=== PATIENT | female | born 1995 | race Caucasian/White ===

== ENCOUNTER 2017-10-13 10:46 | Day surgery (SDC) | payer OTHER ==
--- NOTE | 2017-10-13 07:16 | PDGENHP ---
History and Physical History and Physical: Assessment and Plan: 1. Dysmenorrhea Kat's history and exam findings are highly suggestive of endometriosis in the posterior cul-de-sac. We reviewed all conservative and surgical options. Because of the severity of the pain she wishes to proceed to to surgical intervention. This will be a robotic excision of endometriosis. I will perform her preoperative counseling over the phone. I also will call in Macrodantin as prophylaxis after intercourse. 2. Dyschezia 3. Dyspareunia, female Subjective: Patient ID: Kat Wiggins is a 22 y.o. female who presents to [facility] for endometriosis. LAURA Stephens is a 22-year-old 0 woman who lives in [place]. She has a very long history of dysmenorrhea ever since menarche. She is required several visits to the emergency department where she was prescribed [place]. Cycles are regular every month. She will bleed 7-8 days. 3-4 the days are heavier when she will have to change her pad 3 times per day. Her pain begins 1-2 days before her flow and will last until around day 3. She feels a severe pain lower in the abdomen which radiates down to her feet. It also radiates to her low back. She has deep dyschezia during her menses. She has occasional deeper dyspareunia. Additionally she has frequent urinary tract infections after intercourse. Pain is so severe she feels as though she is dying. It is slowly worsening over time. Works as a administrative services specialist. PastMedicalHistory Past Medical History: Diagnosis Date Gastrointestinal disorder Mental disorder OCD Urinary tract infection PastSurgicalHistory Past Surgical History: Procedure Laterality Date MOLE REMOVAL WISDOM TOOTH EXTRACTION CURRENT MEDICATIONS: Current Outpatient Prescriptions Medication Sig cyanocobalamin, vitamin B-12, (VITAMIN B-12 PO) ergocalciferol, vitamin D2, (VITAMIN D PO) MAGNESIUM PO omega-3 acid ethyl esters, fish oil, (LOVAZA) 1 gram capsule Take 2 g by mouth 2 times daily. No current facility-administered medications for this visit. ALLERGIES: Ibuprofen I have reviewed, verified and agree with the past medical, surgical, , family, social and ROS history as documented by the RN today. Objective: Vital Signs: Visit Vitals BP (!) 88/54 Pulse 73 Temp 37.4 C (99.4 F) (Temporal Artery) Resp 16 Ht 1.575 m (5' 2") Wt 50 kg (110 lb 3.2 oz) SpO2 99% BMI 20.16 kg/m Physical Exam Gen: This is an alert, well developed woman in no distress. Neuro: She moves all extremities. Psych: She is appropriate, oriented, with normal affect. Neck: No thyroid enlargement, adenopathy, or tenderness. Lungs: Clear to ascultation, no wheezes or rales. Heart: Regular rate and rhythm without obvious murmurs. Abdomen: Soft, non-tender, without guarding, rebound, or masses. Extremities: No edema or cyanosis. Pelvic: Normal external genitalia. Non-gaping introitus, vagina without discharge, adequately estrogenized, no significant prolapse. Cervix without lesions or discharge. Uterus normal sized, reduced mobility. Adnexa non-tender without enlargement. She is tender in the anterior cul-de-sac and exquisitely tender in the posterior cul-de-sac especially where the uterosacral ligaments insert onto the cervix. DATA: I have reviewed the pertinent medical records. PELVIC ULTRASOUND Indication: Pelvic pain. Findings: Uterus is anterior and measures 7.3 x 3.7 x 5.0 cm. The endometrium measures 13 mm. No uterine abnormalities are seen. The right ovary measures 3.2 x 2.2 cm. The left ovary measures 2.8 x 1.9 cm. There is no evidence of adhesive disease of either adnexa nor the cervix. Impression: Normal pelvic ultrasound TIME/COMMUNICATION: I personally spent a total of 50 minutes. Of that 35 minutes was counseling/ coordination of patient's care. See my note above for details. Leo Ruiz MD Board Certified Female Pelvic Medicine and Reconstructive Surgery Director of Minimally Invasive Gynecologic Surgery, [facility] Surgeon in Minimally Invasive Gynecologic Surgery [facility] Surgeon in Robotic Surgery
[2017-10-13] MEDS ORDERED: MIDAZOLAM 2 MG/2 ML VIAL IVP ONE (11:01)
--- NOTE | 2017-10-13 11:01 | PDANEPAE ---
ANE History of Present Illness here for robotic endometrial excision ANE Past Medical History - Cardiovascular History Hx Hypertension: No Hx Arrhythmias: No Hx Chest Pain: No Hx Coronary Artery / Peripheral Vascular Disease: No Hx CHF / Valvular Disease: No Hx Palpitations: No - Pulmonary History Hx COPD: No Hx Asthma/Reactive Airway Disease: No Hx Recent Upper Respiratory Infection: No Hx Oxygen in Use at Home: No Hx Sleep Apnea: No Sleep Apnea Screening Result - Last Documented: Negative Pulmonary History Comment: CHILDHOOD ASTHMA - Neurologic History Hx Cerebrovascular Accident: No Hx Seizures: No Hx Dementia: No - Endocrine History Hx Diabetes: No - Renal History Hx Renal Disorders: Yes Renal History Comment: FREQUENT UTI'S - Liver History Hx Hepatic Disorders: No - Neurological & Psychiatric Hx Hx Neurological and Psychiatric Disorders: No - Cancer History Hx Cancer: No - Congenital Disorder History Hx Congenital Disorders: No - GI History Hx Gastrointestinal Disorders: Yes Gastrointestinal History Comment: GASTRITIS 01/2017 STILL SOME RESIDUAL ISSUES - Other Health History Other Health History: RINGWORM UPPER ARM,BETWEEN LEGS,GROIN BEGAN 08/2017 IMPROVING WITH RX. WITH MENSES INCREASED DISCOMFORT - Chronic Pain History Chronic Pain: Yes (LOWER ABD) - Surgical History Prior Surgeries: WISDOM TEETH ANE Review of Systems Review of Systems: - Exercise capacity METS (RN): 4 METS ANE Patient History - Allergies Allergies/Adverse Reactions: ibuprofen Allergy (Verified 09/21/17 16:41) NAUSEA - Home Medications Home Medications: Herbals/Supplements -Info Only DAILY 09/21/17 [Last Taken 2 Weeks Ago ~09/29/17] Terbinafine DAILY 09/21/17 [Last Taken 3 Weeks Ago ~09/22/17] - Smoking Hx Smoking Status: Never smoked - Family Anes Hx Family Hx Anesthesia Complications: NEG ANE Labs/Vital Signs - Vital Signs Height: 157.48 cm Weight: 47.627 kg ANE Physical Exam - Airway Neck exam: FROM Mallampati Score: Class 1 - Pulmonary Pulmonary: no respiratory distress - Cardiovascular Cardiovascular: regular rate and rhythym - ASA Status ASA Status: I ANE Anesthesia Plan Anesthesia Plan: general endotracheal anesthesia
[2017-10-13] MEDS ORDERED: LR 1,000 ML IV ONE (11:21)
[2017-10-13] MEDS ORDERED: ONDANSETRON 4 MG/2 ML VIAL IVP PRN (11:22)
[2017-10-13] MEDS ORDERED: oxyCODONE IR 5 MG TAB PO PRN (11:22)
[2017-10-13] MEDS ORDERED: ALBUTEROL 3 ML DEYVIAL IH PRN (11:22)
[2017-10-13] MEDS ORDERED: ACETAMINOPHEN 500 MG TAB PO PRN (11:22)
[2017-10-13] MEDS ORDERED: DEXAMETHASONE 4 MG/ML VIAL IVP PRN (11:22)
[2017-10-13] MEDS ORDERED: HYDROCODONE/APAP 5/325 TAB PO PRN (11:22)
[2017-10-13] MEDS ORDERED: NALOXONE HCL 0.4 MG/ML INJ IVP PRN (11:22)
[2017-10-13] MEDS ORDERED: HYDROmorphONE/DILAUDID 1 MG/ML INJ IVP PRN (11:22)
--- NOTE | 2017-10-13 11:22 | PDHPUP ---
History & Physical Update H&P update statement: This history and physical update is based on an assessment of the patient which was completed after admission or registration (within 24 hours), but prior to the surgery/procedure. H&P update: H&P reviewed & patient examined, no change in patient's condition since H&P completed
[2017-10-13] MEDS ORDERED: BUPIVACAINE/EPI 0.5% 30 ML SDV ONE (11:25)
[2017-10-13] MEDS ORDERED: PHENAZOPYRIDINE HCL 200 MG TAB PO ONE (11:27)
[2017-10-13] MEDS ORDERED: GABAPENTIN 400 MG CAP PO ONE (11:27)
[2017-10-13] MEDS ORDERED: ceFAZolin 2 GM/DEXTROSE 100 ML IV ONE (11:27)
[2017-10-13] MEDS ORDERED: ACETAMINOPHEN 500 MG TAB PO ONE (11:27)
[2017-10-13] MEDS ORDERED: PROPOFOL/EMULSION 500 MG/50 ML BOTTLE IV ONE (11:29)
[2017-10-13] MEDS ORDERED: fentaNYL 100 MCG/2 ML INJ ONE ×3 (11:31→13:42)
[2017-10-13] MEDS ORDERED: ONDANSETRON 4 MG/2 ML VIAL ONE (11:42)
[2017-10-13] MEDS ORDERED: DEXAMETHASONE 4 MG/ML VIAL ONE (11:42)
[2017-10-13] MEDS ORDERED: PROPOFOL 200 MG/20 ML VIAL ONE (12:04)
[2017-10-13] MEDS ORDERED: SUGAMMADEX SODIUM 200 MG/2 ML VIAL IVP ONE (12:51)
--- NOTE | 2017-10-13 13:03 | POSTOPPROG ---
Post Op Note Date of Operation: 10/13/17 Surgeon: Leo Ruiz Management Developer: Renea Mancera Anesthesiologist: Derrek Joshi Anesthesia: GET(General Endotracheal) Pre-op Diagnosis: Endoemtriosis Post-op Diagnosis: Same Procedure: Robotic excision of endo, bilat ureterolyisis and ovarian pexy Findings: Endo Inf/Abcess present in the surg proc area at time of surgery?: No EBL: Minimal Complications: None
--- NOTE | 2017-10-13 13:09 | GOP ---
[f rep st] OPERATIVE REPORT DATE OF OPERATION: 10/13/2017 SURGEON: Leo Ruiz MD HOSIERY MENDER: Renea Mancera CFA ANESTHESIA: General. PREOPERATIVE DIAGNOSIS: 1. Dysmenorrhea. 2. Cyclic pelvic pain. 3. Endometriosis. POSTOPERATIVE DIAGNOSIS: 1. Dysmenorrhea. 2. Cyclic pelvic pain. 3. Endometriosis. PROCEDURE PERFORMED: 1. Robotic excision of endometriosis throughout posterior cul-de-sac, bilateral ovarian fossae. 2. Bilateral ureterolysis. 3. Bilateral ovarian pexy. FINDINGS: She was found to have endometriosis on the left uterosacral ligament near the cervix. There was endometriosis between the uterosacral ligaments and the posterior cul-de-sac underlying the cervix. There were multiple smaller lesions overlying both ovarian fossas and both ureters. There were no lesions on the uterus, tubes or ovaries. SPECIMENS: Pelvic peritoneum with endometriosis. ESTIMATED BLOOD LOSS: Scant. DESCRIPTION OF PROCEDURE: Kat was taken to the operating room where she was identified. General anesthesia was administered and found to be adequate. She was placed in the lithotomy position and prepared and draped in the normal sterile fashion. A Randhawa catheter was placed in the bladder. A Hulka tenaculum was placed in the uterus for manipulation. A 1 cm infraumbilical incision was made with a scalpel. The Veress needle with CO2 gas flowing was advanced into the peritoneal cavity. The abdomen was then insufflated with carbon dioxide gas. The 12 mm trocar, followed by the laparoscope were then inserted. There was no evidence of endometriosis on either diaphragm, stomach, liver, gallbladder or upper abdominal bowel. Two lateral ports were placed, 1 on the right and 1 on the left under direct visualization. She was then placed in Trendelenburg position and the da Wing robot docked on the left side. The instruments were then brought into the abdominal cavity under direct visualization. Given the cyclic pelvic pain, a bilateral ovarian pexy was performed by attaching each ovary to the ipsilateral round ligaments near the internal inguinal ring with 3-0 Vicryl Rapide suture. The entire posterior cul-de-sac peritoneum with endometriosis was completely excised from the distal rectum up to and including the cervix and laterally to include both uterosacral ligaments. A bilateral ureterolysis was required given the endometriosis overlying both ureters. The peritoneum at the pelvic brims were incised. The ureters were gently dissected free and lateralized off the overlying peritoneum and endometriosis from the pelvic brim all the way to right underneath the uterine artery. The entire ovarian fossa peritoneum bilaterally was then completely excised from the pelvic brim all the way down to the cervix. The pelvis was then irrigated with sterile saline, and hemostasis was present. The robot was then undocked. The fascia was closed with 0 Vicryl. Skin with 4-0 Monocryl and surgical adhesive. Anesthesia was reversed and the patient taken the PACU awake, in stable condition. SURGEON: Leo Ruiz MD COMPLICATIONS: None. DISPOSITION: Patient stable to PACU. /[id number]/MODL MTDD
--- NOTE | 2017-10-13 13:14 | POSTANESTH ---
Post Anesthetic Evaluation Cardiovascular Status: Normal, Stable Respiratory Status: Normal, Stable Level of Consciousness/Mental Status: Can Participate in Eval Pain Control: Adequate, Prn Tx Ordered Nausea/Vomiting Control: Adequate, Prn Tx Ordered Complications Possibly Related to Anesthesia: None Noted
[2017-10-13] MEDS ORDERED: HYDROCODONE/APAP 5/325 TAB ONE (13:38)
[2017-10-13] MEDS: fentaNYL 100 MCG/2 ML INJ IVP PRN ×2 (13:43→13:59)
[2017-10-13 15:08] VITALS: BP 108/67
== END 2017-10-13 15:35 | disposition home or self-care (01) ==
LOC: FSGY 10:46
PROVIDERS: ATTEND Obstetrics & Gynecology
PROC: [UNRECOGNIZED PROCEDURE] (principal; 2017-10-13 12:15)
PROC: 0UN98ZZ Release Uterus, Via Natural or Artificial Opening Endoscopic (ICD-10-PCS; principal; 2017-10-13 12:15)
PROC: 0UB98ZX Excision of Uterus, Via Natural or Artificial Opening Endoscopic, Diagnostic (ICD-10-PCS; principal; 2017-10-13 12:15)
DX: N94.6 Dysmenorrhea, unspecified (principal); N80.0 Endometriosis of uterus
CPT/HCPCS: J0690; J1100; J2250; J2405; J2704; J3010